=== PATIENT | male | born 1950 | race Caucasian/White ===

== ENCOUNTER 2020-09-07 06:21 | Observation (INO) | payer MEDICARE, BC ==
[~2020-09-07] VITALS: Ht 190.5 cm; Wt 107.4 kg
[2020-09-07 06:46] VITALS: BP 157/101
[2020-09-07] MEDS ORDERED: SODIUM CHLORIDE 0.9% 1,000 ML IV SCH (07:00)
[2020-09-07] MEDS ORDERED: CARV3.1212 PO (07:01)
[2020-09-07] MEDS ORDERED: UBID100C24 PO (07:01)
[2020-09-07] MEDS ORDERED: ROSU10TA2 PO (07:01)
[2020-09-07] MEDS ORDERED: OMEG1CAP39 PO (07:01)
[2020-09-07] MEDS ORDERED: AMLO-264 PO (07:01)
[2020-09-07] MEDS ORDERED: ASPI-515 PO (07:01)
[2020-09-07] MEDS ORDERED: FLEC50TA25 PO (07:01)
[2020-09-07] MEDS ORDERED: FENTANYL PF 250 MCG/5ML ONE (08:14)
[2020-09-07] MEDS ORDERED: MIDAZOLAM 1 MG/ML, 5ML ONE ×3 (08:14→12:34)
[2020-09-07] MEDS ORDERED: LIDOCAINE 1%, 20ML ONE (08:14)
[2020-09-07] MEDS ORDERED: LIDOCAINE 2%, 20ML ONE (08:36)
[2020-09-07] MEDS ORDERED: HEPARIN 1,000 UNITS/ML, 10ML ONE ×2 (09:45→12:25)
[2020-09-07] MEDS ORDERED: FENTANYL PF 100 MCG/2ML ONE (12:35)
[2020-09-07 15:47] VITALS: BP 144/77
[2020-09-07 18:50] VITALS: BP 137/81
[2020-09-07] MEDS ORDERED: ATORVASTATIN 20 MG TABLET PO SCH (21:00)
[2020-09-07] MEDS ORDERED: ATORVASTATIN 10 MG TABLET PO SCH (21:00)
[2020-09-07] MEDS: COLCHICINE 0.6 MG CAPSULE PO SCH (21:08)
[2020-09-07] MEDS: ACETAMINOPHEN 325 MG TABLET PO PRN (21:08)
[2020-09-08 00:45] VITALS: BP 136/84
[2020-09-08 08:20] VITALS: BP 138/89
[2020-09-08] MEDS: COLCHICINE 0.6 MG CAPSULE PO SCH (08:58)
[2020-09-08] MEDS ORDERED: CLOPIDOGREL 75 MG TABLET PO SCH (09:00)
[2020-09-08] MEDS ORDERED: ASPIRIN 81 MG TABLET EC PO SCH (09:00)
[2020-09-08] MEDS ORDERED: OMEGA-3/FISH OIL CAPSULE PO SCH (09:00)
[2020-09-08] MEDS ORDERED: AMLODIPINE 2.5 MG TABLET PO SCH (09:00)
[2020-09-08] MEDS ORDERED: FLECAINIDE 50MG TABLET PO SCH (09:00)
[2020-09-08] MEDS ORDERED: TEMPLATE NON-FORMULARY MED. (Ubidecarenone (Coq-10) 1 TAB) PO SCH (09:00)
[2020-09-08] MEDS: ACETAMINOPHEN 325 MG TABLET PO PRN (09:05)
[2020-09-08] MEDS ORDERED: CLOP75TA52 PO (09:28)
[2020-09-08] MEDS ORDERED: MEXI150C PO (09:58)
[2020-09-08 12:40] VITALS: BP 153/91
== END 2020-09-08 14:15 | disposition home or self-care (01) ==
LOC: CACL 06:21 → ORIP 13:24 → 5SO 16:05 → DCLOUNGE 09-08 13:48
PROVIDERS: ADMIT Internal Medicine Cardiovascular Disease; ATTEND Internal Medicine Cardiovascular Disease
DX: I49.3 Ventricular premature depolarization (principal); I47.2 Ventricular tachycardia; I10 Essential (primary) hypertension; E78.5 Hyperlipidemia, unspecified; I27.20 Pulmonary hypertension, unspecified; Z79.82 Long term (current) use of aspirin; Z79.899 Other long term (current) drug therapy
CPT/HCPCS: 85347; 93306; 93454; 93654; 93662; 99156; 99157; C1730; C1732; C1759; C1760; C1766; C1769; C1894; C2630; G0378; J1644; J2250; J3010; J3490; Q9967